=== PATIENT | female | born 1975 | race Hispanic/Latino ===

== ENCOUNTER 2024-11-25 02:29 | Emergency (ER) | payer SELFPAY ==
[~2024-11-25] VITALS: Ht 170.2 cm; Wt 107.0 kg
--- NOTE | 2024-11-25 03:00 | ERN ---
ED Note History of Present Illness Stated Complaint: RT KNEE PAIN Chief Complaint: Knee Injury/Swelling Time Seen by MD: 02:31 Dictation: This is a 49-year-old female who presented to the emergency room saying that her right knee has been very painful and she is unable to walk. She stated that the pain started 2 weeks ago and got progressively worse she has had problems with the right knee for many years and in the past her primary care physician has done x-rays and told her that it was bone on bone. She denied any fall or injury to the right knee. She even exercised on treadmill yesterday for 10 or 15 minutes. She has taken the medications that were given to her by her primary in the past for the past few days but she does not recall the name of the medicine. It starts with a C Allergies: Coded Allergies: No Known Allergies (Unverified Allergy, Unknown, 11/25/24) Home Meds Active Scripts Prednisone (Prednisone) 20 Mg Tablet, 1 TAB PO AD for 6 Days, #14 TAB 0 Refills TAKE 1 TAB BY MOUTH THREE TIMES PER DAY X3 DAYS, THEN TAKE 1 TAB BY MOUTH TWICE A DAY X2 DAYS, THEN TAKE 1 TAB BY MOUTH ONCE A DAY X1 DAY. Prov:CORINNE GARCIA MD 11/25/24 Meloxicam (Meloxicam) 7.5 Mg Tablet, 1 TAB PO DAILY for knee pain for 15 Days, #15 TAB 0 Refills Prov:CORINNE GARCIA MD 11/25/24 Past Medical History Past Medical History: Hypertension Surgical History: Family History: Negative Social History: Drugs (Long history of crack abuse), Negative RN Note Reviewed/Agreed w/PFSH: Yes Review of System Dictation Constitutional: Negative for fever,chills, and weight loss Eyes: Negative for injury, pain,redness, and discharge ENT: Negative for injury,pain or swelling Cardiovascular: Negative for chest pain, palpitations, and edema Respiratory: Negative for shortness of breath, cough, and wheezing, Abdomen/GI: Negative for abdominal pain, nausea, vomiting, diarrhea, and constipation Back: Negative for injury and pain : Negative for injury, bleeding and discharge MS/Extremity: Negative for injury and deformity severe right knee pain and swelling Skin: Negative for rash, and discoloration Neuro: Negative for headache, weakness, numbness, tingling, and seizure Psych: Negative for suicide ideation, homicidal ideation, and hallucinations Initial Vital Sign VS Vital Signs Date Time Temp Pulse Resp B/P (MAP) Pulse Ox O2 Delivery O2 Flow Rate FiO2 11/25/24 02:30 98.1 87 20 138/85 99 Room Air 11/25/24 02:42 0 21 Physical Exam Dictation General: awake, alert, NAD morbidly obese Head/Face: Normocephalic, atraumatic Eyes: PERRL, EOMI, vision at baseline ENT: oral cavity clear, TMs clear, no signs of infection Neck: Trachea midline, supple, no nuchal rigidity Cardiovascular: RRR, normal S1/S2, No MRGs, no JVD Respiratory: CTAB, no respiratory distress, No rales or wheezes Abdomen: Soft, non-tender, non-distended, normal bowel sounds, no guarding or rebound. Skin: Warm, dry, normal turgor, no rash MS/Extremity: Pulses equal, no cyanosis, neurovascular intact, FROM no obvious deformity of the knee but movement of the knee elicited pain. Also mild tenderness in the popliteal fossa area no obvious ruptured Kam's cyst. Neuro: COAx4, GCS 15, strength 5/5, CN 2-12 intact, normal cerebellar exam, normal gait, Psych: Normal behavior, mood, and affect normal Extremities-trace edema without any palpable cords, Homans sign is negative Results (Laboratory/Radiology) Labs Reviewed?: Yes ED Course ED Course Orders Procedure Category Date Status Time Knee 3vws Rt RAD 11/25/24 Taken 02:53 Ketorolac PHA 11/25/24 Complete Tromethamine 30mg/Ml 03:00 Us Venous Doppler US 11/25/24 Taken Unilateral 03:29 Methylprednisolone PHA 11/25/24 Complete Succ 125mg (Solu-Medr 04:00 Current Medications Medications (Trade) Dose Ordered Sig/Cj Route PRN Reason Start Time Stop Time Status Last Admin Dose Admin Ketorolac Tromethamine (toRADol) 30 mg ONCE ONCE IM 11/25/24 03:00 11/25/24 03:01 DC 11/25/24 03:12 Methylprednisolone Sodium Succinate (Solu-medROL 125MG) 125 mg ONCE ONCE IM 11/25/24 04:00 11/25/24 04:01 DC 11/25/24 04:04 Vital Signs Date Time Temp Pulse Resp B/P (MAP) Pulse Ox O2 Delivery O2 Flow Rate FiO2 11/25/24 03:23 98.2 78 20 116/82 97 Room Air* 0 21 11/25/24 02:42 98.4 82 18 125/72 98 Room Air* 0 21 11/25/24 02:30 98.1 87 20 138/85 99 Room Air We will perform imaging and administer medications according to the patient's complaint. Once the results are available, will review and personally interpreted the labs to rule out any acute life-threatening emergency the trach require immediate intervention and treatment. I will then re-evaluate the patient after treatment and diagnostic exams have return to determine whether the patient requires any further testing, can safely be discharged home or need further admission to hospital for additional treatment and evaluation. 3:30 a.m. right knee x-ray preliminary by my interpretation does not show any fractures dislocations in the joint space is quite well maintained. In view of the pain in the posterior fossa in the calf area, we will request venous Doppler study of that extremity also. 4:47 a.m. Venous Doppler study of right lower extremities negative for DVT but there is an anechoic structure in the back of the knee which appears like Kam's cyst. Final radiology report is pending at this time I updated the patient on all the findings and continue the nonsteroidals and course of steroid. I also recommended that she should see the orthopedic surgeon for intra-articular steroid for relief. The knee has been placed in knee immobilizer for now. She verbalized full understanding Medical Decision Making MDM MDM: Differential diagnosis: Osteoarthritis, medial meniscus tear, ligament tear, fracture of the bones, patellar dislocation Rationale: Tests considered and ordered secondary to shared decision making include: Previous outside records reviewed: Old ER visits. Risk of complication and/or morbidity or mortality of patient management: None Medications-Per medication reconciliation Need for hospitalization: Patient does not meet criteria for hospitalization. Need for emergency major/minor surgery: No There are no social concerns with this patient. Prescription drug management Prescriptions will include symptomatic care Patient's prior external medical records from other ER visits were reviewed by me as indicated. Prior testing and results from previous visits were reviewed. Prior tests were taken into account with medical decision making and resource utilization, independent historian/historians were used to obtain complete medical history. I independently interpreted the test that were performed, results were reviewed by me and considered findings on radiology if ordered. Medical management and examination interpretation discussions were had by me with other qualified healthcare professionals as indicated for the patient's care. Problem List Problem List: (1) Right knee pain (2) Swelling of right knee (3) Synovial cyst of popliteal space [Kam], right knee DX & DISP Disposition: Discharge Departure Impression: Primary Impression: Right knee pain Additional Impressions: Swelling of right knee, Synovial cyst of popliteal space [Kam], right knee Condition: Stable Scripts Prednisone (Prednisone) 20 Mg Tablet 1 TAB PO AD for 6 Days, #14 TAB 0 Refills TAKE 1 TAB BY MOUTH THREE TIMES PER DAY X3 DAYS, THEN TAKE 1 TAB BY MOUTH TWICE A DAY X2 DAYS, THEN TAKE 1 TAB BY MOUTH ONCE A DAY X1 DAY. Prov: CORINNE GARCIA MD 11/25/24 Meloxicam (Meloxicam) 7.5 Mg Tablet 1 TAB PO DAILY for knee pain for 15 Days, #15 TAB 0 Refills Prov: CORINNE GARCIA MD 11/25/24 Additional Instructions: Patient and the caregiver have been informed of all the diagnostic tests and the imaging conducted during the today's visit to the emergency room and has verbalized understanding of the results I have personally reviewed and interpreted all diagnostic exams performed here in the ER today as well as the vital signs documented by the nursing staff. The patient is now being discharged to home and should follow up with the primary care physician or the specialist as directed by the ER staff. Follow-up with primary care provider in 1 to 2 days. Take medications as directed here in the emergency room. Okay to continue home medications unless otherwise discussed during your visit in the emergency room today. Return to your nearest emergency room if symptoms worsen or if there is no improvement. Call 911 if you need immediate assistance. Take Tylenol or Motrin [id number] as needed and if no contraindications are present. Increase oral hydration. A wound culture or urine culture was ordered here in the emergency room department please follow-up with primary care provider and advise them to get repeat ports from our facility. If you had any Farzad wrap/splints that were applied here, please do not remove them until you see your primary care or specialty. Referrals: SELF,REFERRAL (PCP) TYLER DOWELL ANURADHA R MD Nov 25, 2024 03:00
[2024-11-25] MEDS: ketOROlac 30MG VIAL (30MG/ML) IM ONE (03:12)
[2024-11-25 03:23] VITALS: BP 116/82; PULSE 78; RESP 20; TEMP 98.2; O2SAT 97
[2024-11-25] MEDS: Solu-medROL 125MG VIAL IM ONE (04:04)
[2024-11-25] MEDS ORDERED: MELO-106 PO (04:39)
[2024-11-25] MEDS ORDERED: PRED20TA3 PO (04:39)
--- NOTE | 2024-11-25 07:45 | HMCIMG ---
KNEE 3VWS RT HISTORY: Right knee pain COMPARISON: None TECHNIQUE: 3 images of right knee were obtained. FINDINGS: There is no acute displaced fracture or dislocation. There is soft tissue swelling. IMPRESSION: 1. Findings as described above.
--- NOTE | 2024-11-25 07:51 | HMCIMG ---
US VENOUS DOPPLER UNILATERAL HISTORY: Right knee and calf pain COMPARISON: None TECHNIQUE: Right lower extremity venous Doppler ultrasound study was performed. FINDINGS: The right common femoral, femoral, popliteal, and posterior tibial veins are visualized. Normal flow with augmentation and compressibilities are demonstrated. Right greater saphenous vein is patent. There may be right popliteal Kam's cyst measuring 8.4 x 2.7 x 5.9 cm in the popliteal area and also in the proximal calf area measuring 5.7 x 1.8 x 3.3 cm. IMPRESSION: 1. No evidence of deep venous thrombosis is seen. Findings suggestive of Kam's cyst.
== END 2024-11-25 06:03 | disposition home or self-care (01) ==
LOC: EDH 02:29
DX: M71.21 Synovial cyst of popliteal space [Baker], right knee (principal); M25.561 Pain in right knee; M79.661 Pain in right lower leg; I10 Essential (primary) hypertension; Z79.1 Long term (current) use of non-steroidal anti-inflammatories (NSAID)
CPT/HCPCS: 99285; 29505; 93971; 73562; 96372 ×2; J1885; J2919

== ENCOUNTER 2025-07-29 16:10 | Emergency (ER) | payer SELFPAY ==
[~2025-07-29] VITALS: Ht 167.6 cm; Wt 96.2 kg
[~2025-07-29 16:10] MED LIST: MELO-106 PO; PRED20TA3 PO
[2025-07-29 16:36] LABS: IMMATURE GRANULOCYTE ABSOLUTE 0.03 K/uL (0-1); NUCLEATED RED BLOOD CELLS 0.0 % (0.0-0.19); PLATELET COUNT (AUTO) 296 K/uL (130-400); RED BLOOD CELL COUNT(AUTO) 4.46 MIL/uL (4.00-5.50); RED CELL DISTRIBUTION WIDTH 13.0 % (11.0-15.5); WHITE BLOOD COUNT (AUTO) 9.9 K/uL (4.8-10.8)
[2025-07-29 17:09] LABS: CREATININE 1.0 mg/dL (0.5-1.0); GLOMERULAR FILTR. RATE CALC 69.0 mL/min (>90); GLUCOSE,RANDOM 109.0 mg/dL (70-105); SODIUM SERUM 136.0 mmol/L (136-145); UREA NITROGEN, BLOOD 14.0 mg/dL (7-18)
[2025-07-29 17:19] LABS: ASPARTATE AMINOTRANSFERASE 12.0 U/L (10-37); HCG,QUANTITATIVE 1.0 mIU/mL (0-5); TOTAL PROTEIN, SERUM 7.7 g/dL (6.0-8.3)
[2025-07-29] MEDS: 0.9%NACL 1000ML 1,000 ML IV ONE (17:23)
--- NOTE | 2025-07-29 17:23 | NUR ---
PT REFUSED MEDICATION. PT WAS EDUCATED ON THE USE OF ZOFRAN. PT STATED "MY NAUSEA IS NOT THAT BAD".
--- NOTE | 2025-07-29 17:31 | ERN ---
General Chief Complaint: Abdominal Pain Stated Complaint: ABD PAIN Time Seen by MD: 16:13 Source: patient History of Present Illness Initial Comments PATIENT IS A 50-YEAR-OLD FEMALE COMING IN COMPLAINING OF RIGHT UPPER QUADRANT PAIN. PER PATIENT SHE STATES THAT SHE HAS A HISTORY OF GALLSTONES WELL. SYMPTOMS BEGAN COUPLE OF DAYS AGO. Allergies: Coded Allergies: No Known Allergies (Unverified Allergy, Unknown, 11/25/24) Home Meds Active Scripts Prednisone (Prednisone) 20 Mg Tablet, 1 TAB PO AD for 6 Days, #14 TAB 0 Refills TAKE 1 TAB BY MOUTH THREE TIMES PER DAY X3 DAYS, THEN TAKE 1 TAB BY MOUTH TWICE A DAY X2 DAYS, THEN TAKE 1 TAB BY MOUTH ONCE A DAY X1 DAY. Prov:CORINNE GARCIA MD 11/25/24 Meloxicam (Meloxicam) 7.5 Mg Tablet, 1 TAB PO DAILY for knee pain for 15 Days, #15 TAB 0 Refills Prov:CORINNE GARCIA MD 11/25/24 Past Medical History Past Medical History: Constipation, Gallstones, High Cholesterol, Hypertension Medical History Other: H-PYLORI Past Surgical History: Family History Family History: Negative Social History Social History: Drugs, Negative ROS Dictation CONSTITUTIONAL: NO CHILLS, NO FEVER, NO WEAKNESS, NO DIAPHORESIS, NO MALAISE. HEAD/FACE: NO SIGNS OF TRAUMA. EENT: NO EYE PAIN, NO BLURRED VISION, NO TEARING, NO DOUBLE VISION, NO EAR PAIN, NO EAR DISCHARGE, NO NOSE PAIN, NO NASAL CONGESTION, NO THROAT PAIN, NO THROAT SWELLING, NO MOUTH PAIN. RESPIRATORY: NO COUGH, NO ORTHOPNEA, NO SOB, NO STRIDOR, NO WHEEZING. CARDIOVASCULAR: NO CHEST PAIN, NO EDEMA, NO PALPITATIONS, NO SYNCOPE. GASTROINTESTINAL/ABDOMINAL: ABDOMINAL PAIN, NO CONSTIPATION, NO DIARRHEA, NO NAUSEA, NO VOMITING. GENITOURINARY: NO ABNORMAL DISCHARGE, NO DYSURIA, NO FREQUENT URINATION, NO HEMATURIA. NO COMPLAINTS OF PAIN IN THE GENITALS. MUSCULOSKELETAL: NO BACK PAIN, NO GOUT, NO JOINT PAIN, NO JOINT SWELLING, NO MUSCLE PAIN, NO MUSCLE STIFFNESS, NO NECK PAIN. INTEGUMENTARY: NO CHANGE IN COLOR, NO CHANGE IN HAIR/NAILS, NO DRYNESS, NO LESION, NO LUMPS, NO RASH. NEUROLOGICAL/PSYCH: NO ANXIETY, NOT DEPRESSED, NO EMOTIONAL PROBLEM, NO HEADACHE, NO NUMBNESS, NO PRE-EXISTING DEFICIT, NO HISTORY OF SEIZURES, NO TREMORS, NO WEAKNESS. HEMATOLOGIC/LYMPHATIC: NOT ANEMIC, NO HISTORY OF BLOOD CLOTS, NO APPARENT BLEEDING, NO BRUISING, GLANDS NOT SWOLLEN. ALL SYSTEMS NEGATIVE, EXCEPT NOTED. Physical Exam Physical Exam Dictation VITAL SIGNS: REVIEWED. GENERAL APPEARANCE: ALERT, ORIENTED X3, NO ACUTE DISTRESS, OBESE. HEAD AND FACE: NON-TRAUMATIC. EYES: PERRL, PINK CONJUNCTIVAS, EYELID NO TRAUMA, ANTERIOR CHAMBER CLEAR. EARS: PINNAS INTACT AND NO SIGNS OF TRAUMA OR ERYTHEMA. EAR CANALS CLEAR AND NO DISCHARGE. TMS NO ERYTHEMA. NOSE: NO DISCHARGE, NO BLEEDING. OROPHARYNX: MOUTH NORMAL, TEETH NO CARIES, TONGUE PINK. PHARYNX CLEAR, NO ERYTHEMA. TONSILS NO EXUDATES, NO ABSCESSES NOTED. MUCOUS MEMBRANE MOIST. NECK: SUPPLE, NON-TENDER, NO THYROMEGALY, NO MASSES, NO JVD, NO BRUITS. BREAST: DEFERRED. CHEST: NO TENDERNESS, NO CREPITUS, NO PARADOXICAL MOVEMENT, NO RETRACTIONS. LUNGS: CLEAR, WELL-VENTILATED, SYMMETRIC, NO RALES, NO WHEEZING, NO RHONCHI, NO STRIDOR, GOOD BREATH SOUNDS BILATERALLY. HEART: REGULAR RATE, REGULAR RHYTHM, NO MURMUR, NO GALLOPS. VASCULAR: NO PERIPHERAL EDEMA. ABDOMEN: SOFT, POSITIVE BOWEL SOUNDS, NONDISTENDED, NO GUARDING, RIGHT UPPER QUADRANT TENDER, NO REBOUND, NO MASSES NO HEPATOMEGALY, NO SPLENOMEGALY, NO RODRIGUEZ'S SIGN, NO HERNIAS. RECTAL: DEFERRED. GENITAL: DEFERRED. NEUROLOGICAL: NORMAL SPEECH, GROSS MOTOR FUNCTION INTACT, GROSS SENSORY FUNCT ION INTACT. MUSCULOSKELETAL: NECK NONTENDER, FULL RANGE OF MOTION, BACK NONTENDER, FULL RANGE OF MOTION. EXTREMITIES: NONTENDER, FULL RANGE OF MOTION. SKIN: COLOR PINK, DRY, NO TURGOR, NO RASH, NO LACERATIONS, NO ABRASIONS, NO CONTUSIONS. LYMPHATICS: DEFERRED. Results Laboratory and Microbiology Lab and Micro Result Laboratory Tests Test 07/29/25 16:30 White Blood Count 9.9 K/uL (4.8-10.8) Red Blood Count 4.46 MIL/uL (4.00-5.50) Hemoglobin 13.2 g/dL (12.0-16.0) Hematocrit 40.4 % (36-48) Mean Corpuscular Volume 90.6 fL (79-99) Mean Corpuscular Hemoglobin 29.6 pg (27.0-33.0) Mean Corpuscular Hemoglobin Concent 32.7 g/dL (32.0-36.0) Red Cell Distribution Width 13.0 % (11.0-15.5) Platelet Count 296 K/uL (130-400) Mean Platelet Volume 10.7 fL (7.5-10.5) H Immature Granulocyte % (Auto) 0.3 % (0-1) Neutrophils (%) (Auto) 67.9 % (40.0-77.0) Lymphocytes (%) (Auto) 26.8 % (21.0-51.0) Monocytes (%) (Auto) 4.0 % (3.0-13.0) Eosinophils (%) (Auto) 0.7 % (0.0-8.0) Basophils (%) (Auto) 0.3 % (0.0-5.0) Neutrophils # (Auto) 6.7 K/uL (1.8-7.7) Lymphocytes # (Auto) 2.7 K/uL (1.0-4.8) Monocytes # (Auto) 0.4 K/uL (0.1-1.0) Eosinophils # (Auto) 0.07 K/uL (0.00-0.70) Basophils # (Auto) 0.03 K/uL (0.00-0.20) Absolute Immature Granulocyte (auto 0.03 K/uL (0-1) Nucleated Red Blood Cells 0.0 % (0.0-0.19) Sodium Level 136 mmol/L (136-145) Potassium Level 3.5 mmol/L (3.5-5.1) Chloride Level 96 mmol/L (101-111) L Carbon Dioxide Level 30 mmol/L (21-32) Blood Urea Nitrogen 14 mg/dL (7-18) Creatinine 1.0 mg/dL (0.5-1.0) Glomerular Filtration Rate Calc 69 mL/min (>90) Random Glucose 109 mg/dL (70-105) H Total Calcium 10.0 mg/dL (8.5-10.1) Total Bilirubin 0.3 mg/dL (0.2-1.0) Aspartate Amino Transf (AST/SGOT) 12 U/L (10-37) Alanine Aminotransferase (ALT/SGPT) 12 U/L (12-78) Alkaline Phosphatase 89 U/L (50-136) Total Protein 7.7 g/dL (6.0-8.3) Albumin 3.8 g/dL (3.5-5.0) Lipase 24 U/L (16-77) Human Chorionic Gonadotropin, Quant 1 mIU/mL (0-5) Labs Reviewed?: Yes EKG/XRAY/US/CT/MRI EKG Comment 07/29/2025 TIME 4:21 P.M. VENTRICULAR RATE 81 SINUS RHYTHM [place] [address] WAVE ELEVATION OR DEPRESSION Ultrasound Comment [facility] [address] [address] IMAGING REPORT Signed PATIENT: YESIKA RAMOS MR#: [id number] : 1975 SEX: F AGE: 50 LOCATION: [facility] ORDER 19 STATUS: [facility] REPORT#: [id number] SERVICE 16 REASON: Adominal Pain ORDERING PHYSICIAN: TRAVIS DICKSON MD PROCEDURE: ABDRUQLTD - US ABDOMINAL RUQ\LTD EXAM: US Abdomen, Right Upper Quadrant. CLINICAL HISTORY: Adominal Pain TECHNIQUE: Right upper quadrant sonography performed with image documentation. COMPARISON: None provided. FINDINGS: LIVER: Borderline hepatomegaly 17 cm with questionable increased echogenecity No mass. Hepatopetal flow is noted in the portal vein with a velocity of approximately 22 cm/s. GALLBLADDER: Multiple gallstones are visualized within the gallbladder, measuring approximately 2 cm. No gallbladder wall thickening seen. COMMON BILE DUCT: No dilation. 5 mm. PANCREAS: Unremarkable RIGHT KIDNEY: Unremarkable. Normal renal contours. No renal mass or calculus. No hydronephrosis. IMPRESSION: Cholelithiasis without evidence of cholecystitis /[place] DICTATED BY: SILVA MONGE MD DATE: 07/29/251842 ELECTRONICALLY SIGNED BY: SILVA MONGE MD DATE: 11/23/25 1843 MDM MDM: DIFFERENTIAL DIAGNOSIS: GASTRITIS, GERD, RATIONALE: TESTS CONSIDERED AND ORDERED SECONDARY TO SHARED DECISION MAKING INCLUDE: PREVIOUS OUTSIDE RECORDS REVIEWED: OLD ER VISITS. RISK OF COMPLICATION AND/OR MORBIDITY OR MORTALITY OF PATIENT MANAGEMENT: NONE MEDICATIONS-PER MEDICATION RECONCILIATION NEED FOR HOSPITALIZATION: PATIENT DOES NOT MEET CRITERIA FOR HOSPITALIZATION. NEED FOR EMERGENCY MAJOR/MINOR SURGERY: NO IN HIS IS A 50 YEAR OLD FEMALE COMING IN COMPLAINING OF RIGHT UPPER QUADRANT PAIN. ULTRASOUND LABORATORY WORKUP DID NOT DISCLOSE ACUTE FINDINGS. PATIENT RECEIVED A GI COCKTAIL AND WAS HYDRATED STATES HE FEELS BETTER WE WILL BE DISCHARGED IN STABLE CONDITION. ED Course Orders Procedure Category Date Status Time Cbc With Differential LAB 07/29/25 Complete 16:17 Comprehensive LAB 07/29/25 Complete Metabolic Panel 16:17 Hcg,Quantitative LAB 07/29/25 Complete 16:17 Urinalysis Profile LAB 07/29/25 Logged 16:17 Us Abdominal Ruq\Ltd US 07/29/25 Resulted 16:17 12 Lead Ekg Tracing- EKG 07/29/25 Logged Technical 16:17 0.9%Nacl 1000ml (Ns PHA 07/29/25 Complete 1000ml) 16:30 Ondansetron 4mg Inj PHA 07/29/25 Complete (Zofran 4mg Inj) 16:30 Lipase LAB 07/29/25 Complete 16:17 Lidocaine Hcl 2% PHA 07/29/25 Complete Viscous (Lidocaine Hcl 18:00 Mag/Alum/Simeth 30ml PHA 07/29/25 Complete (Maalox Plus 30ml) 18:00 Current Medications Medications (Trade) Dose Ordered Sig/Cj Route PRN Reason Start Time Stop Time Status Last Admin Dose Admin Al Hydroxide/Mg Hydroxide (MAALox PLUS 30ML) 30 ml ONCE ONCE PO 07/29/25 18:00 07/29/25 18:01 DC Lidocaine HCl (Lidocaine HCl 2% Viscous) 10 ml ONCE ONCE PO 07/29/25 18:00 07/29/25 18:01 DC Ondansetron HCl (zoFRAN 4MG INJ) 4 mg ONCE ONCE IVP 07/29/25 16:30 07/29/25 16:31 DC Sodium Chloride 1,000 ml @ 0 mls/hr ONCE ONCE IV 07/29/25 16:30 07/29/25 16:31 DC 07/29/25 17:23 Vital Signs Date Time Temp Pulse Resp B/P (MAP) Pulse Ox O2 Delivery O2 Flow Rate FiO2 07/29/25 16:13 97.2 85 18 128/93 97 Room Air 0 DX & DISP Disposition: Discharge Departure Impression: Primary Impression: Gastritis Additional Impression: Dehydration Condition: Stable Scripts Pantoprazole Sodium (Protonix) 40 Mg Ectab 1 TAB PO DAILY for 30 Days, #30 TAB 0 Refills Prov: TRAVIS DICKSON MD 07/29/25 Additional Instructions: FOLLOW-UP WITH PRIMARY CARE PROVIDER IN 1 TO 2 DAYS. TAKE MEDICATIONS DIRECTED HERE IN THE EMERGENCY ROOM. OKAY TO CONTINUE HOME MEDICATIONS UNLESS OTHERWISE DISCUSSED DURING YOUR VISIT IN THE EMERGENCY ROOM TODAY. RETURN TO YOUR NEAREST EMERGENCY ROOM IF SYMPTOMS WORSEN OR IF THERE IS NO IMPROVEMENT. CALL 911 IF YOU NEED IMMEDIATE ASSISTANCE. TAKE TYLENOL [id number] NEEDED AND IF NO CONTRAINDICATIONS ARE PRESENT. INCREASE ORAL HYDRATION. A WOUND CULTURE OR URINE CULTURE WAS ORDERED HERE IN THE EMERGENCY ROOM DEPARTMENT PLEASE FOLLOW-UP WITH PRIMARY CARE PROVIDER AND ADVISE THEM TO GET REPORTS FROM OUR FACILITY. IF YOU HAD ANY IHSAN WRAP/SPLINTS THAT WERE APPLIED HERE, PLEASE DO NOT REMOVE THEM UNTIL YOU SEE YOUR PRIMARY CARE OR SPECIALTY. REFERRALS: Referrals: SELF,REFERRAL (PCP) DAREK DUBON MD Time of Disposition: 18:11 TRAVIS DICKSON MD Jul 29, 2025 17:31
--- NOTE | 2025-07-29 17:44 | HMCIMG ---
EXAM: US Abdomen, Right Upper Quadrant. CLINICAL HISTORY: Adominal Pain TECHNIQUE: Right upper quadrant sonography performed with image documentation. COMPARISON: None provided. FINDINGS: LIVER: Borderline hepatomegaly 17 cm with questionable increased echogenecity No mass. Hepatopetal flow is noted in the portal vein with a velocity of approximately 22 cm/s. GALLBLADDER: Multiple gallstones are visualized within the gallbladder, measuring approximately 2 cm. No gallbladder wall thickening seen. COMMON BILE DUCT: No dilation. 5 mm. PANCREAS: Unremarkable RIGHT KIDNEY: Unremarkable. Normal renal contours. No renal mass or calculus. No hydronephrosis. IMPRESSION: Cholelithiasis without evidence of cholecystitis /[place]
[2025-07-29] MEDS ORDERED: PANT40TA55 PO (18:13)
[2025-07-29] MEDS: MAG/ALUM/SIMETH 30 ML UDCUP PO ONE (18:26)
[2025-07-29] MEDS: LIDOCAINE HCL 2% VISCOUS 15 ML UDCUP PO ONE (18:26)
[2025-07-29 18:39] VITALS: BP 128/93; PULSE 84; RESP 15; TEMP 98; O2SAT 99
--- NOTE | 2025-07-30 05:43 | EKG ---
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
== END 2025-07-29 18:35 | disposition home or self-care (01) ==
LOC: EDH 16:10
DX: K29.70 Gastritis, unspecified, without bleeding (principal); E86.0 Dehydration; I10 Essential (primary) hypertension; E78.00 Pure hypercholesterolemia, unspecified; Z79.1 Long term (current) use of non-steroidal anti-inflammatories (NSAID); Z98.890 Other specified postprocedural states
CPT/HCPCS: 99284; 96360; 80053; 76705; 84702; 83690; 85025; 36415; 93005; J7030; J2405